=== PATIENT | female | born 1970 | race Caucasian/White ===

== ENCOUNTER 2022-09-17 13:42 | Outpatient (CLI) | payer OTHER | END 2022-09-17 13:49 | disposition home or self-care (01) | LOC: RAD 13:42 | PROVIDERS: ATTEND Orthopaedic Surgery | DX: M25.561 Pain in right knee (principal) ==

== ENCOUNTER 2023-03-25 11:53 | Outpatient (CLI) | payer OTHER | END 2023-03-25 12:00 | disposition home or self-care (01) | LOC: RAD 11:53 | PROVIDERS: ATTEND Orthopaedic Surgery | DX: M25.561 Pain in right knee (principal); M25.562 Pain in left knee ==